=== PATIENT | male | born 2000 | race Caucasian/White ===

== ENCOUNTER 2018-11-09 01:52 | Emergency (ER) | payer OTHER ==
[2018-11-09] MEDS ORDERED: MORPHINE 4 MG/ML SDV IVP ONE (01:55)
[2018-11-09] MEDS ORDERED: MORPHINE 4 MG/ML SDV ONE (02:28)
[2018-11-09 02:30] VITALS: BP 115/60
[2018-11-09] MEDS ORDERED: ACET/HYDROC 5/325MG TH ER ONLY 2 TAB/BOTTLE PO ONE (02:35)
[2018-11-09] MEDS ORDERED: LOR5/325 PO (02:37)
[2018-11-09] MEDS ORDERED: KET10 PO (02:37)
--- NOTE | 2018-11-09 02:38 | ER Report ---
History and Physical Time Seen By MD: 02:15 Hx. of Stated Complaint: PATIENT STATES THAT HE WAS WALKING TO HIS APPARTMEN WHEN HE SLIPPED AND FELL; PATIENT STATES THAT HE LANDED ON HIS LEFT ANKLE HPI/ROS Was out with friends last night. On his way back to his partment, he slipped on the ice, and fell to the ground. Now with pain and swelling in left ankle. Unable to bear weight/ambulate. No other complaints/injuries. Remainder of the 14 system rev: Yes Allergies: Coded Allergies: No Known Drug Allergies (Unverified , 11/09/18) Home Meds Active Scripts Ketorolac Tromethamine (KETOROLAC TROMETHAMINE) 10 Mg Tab, 10 MG PO Q6H PRN for PAIN, #12 TAB 0 Refills Prov:RAYMOND URBANO MD 11/09/18 Hydrocodone Bit/Acetaminophen (HYDROCODON-ACETAMINOPHEN 5-325) 1 Each Tablet, 1 EACH PO Q4H PRN for PAIN, #10 TAB 0 Refills Prov:RAYMOND URBANO MD 11/09/18 Reviewed Nurses Notes: Yes Hx Smoking: No Hx Substance Use Disorder: No Hx Alcohol Use: No Constitutional Physical Exam GE: awake and alert in NAD CV: RRR, no m/r/g, pulses equal/symmetric Lungs: cta b/l Ex: left ankle with TTP of the medical and laterl malleolus. N/V in tact. no lacerations/abrasions Medical Decision Making ED Course/Re-evaluation ED Course Fracture of the ankle after a fall on the ice. N/V in tact. No other injuries. Splint placed by mix technician, and will follow up with ortho this week. Decision to Disposition Date: Nov 09, 2018 Decision to Disposition Time: 02:34 Depart Departure Latest Vital Signs Impression: Primary Impression: Malleolar fracture Additional Impression: Fibula fracture Condition: Improved Disposition: HOME OR SELF-CARE Referrals: JOSAFAT NAVARRO MD New Scripts Ketorolac Tromethamine (KETOROLAC TROMETHAMINE) 10 Mg Tab 10 MG PO Q6H PRN for PAIN, #12 TAB 0 Refills Prov: RAYMOND URBANO MD 11/09/18 Hydrocodone Bit/Acetaminophen (HYDROCODON-ACETAMINOPHEN 5-325) 1 Each Tablet 1 EACH PO Q4H PRN for PAIN, #10 TAB 0 Refills Prov: RAYMOND URBANO MD 11/09/18 Patient Instructions: Ankle Fracture (DC) Problem Qualifiers Primary Impression: Malleolar fracture Encounter type: initial encounter Fracture type: closed Laterality: left Qualified Codes: S82.892A - Other fracture of left lower leg, initial encounter for closed fracture Additional Impression: Fibula fracture Encounter type: initial encounter Fibula location: distal Fracture type: closed Fracture morphology: unspecified fracture morphology Laterality: left Qualified Codes: S82.832A - Other fracture of upper and lower end of left fibula, initial encounter for closed fracture RAYMOND URBANO MD Nov 09, 2018 02:38
--- NOTE | 2018-11-26 09:26 | RADIOLOGY IMAGING REPORT ---
FACILITY: PATIENT NAME: Tobi Stokes : 2000 MR: [id number] V: [id number] EXAM DATE: ORDERING PHYSICIAN: RAYMOND URBANO TECHNOLOGIST: Location: [facility] Patient: Tobi Stokes : 2000 Visit/Account:[id number] Date of Sevice: 11/09/2018 ANKLE 2 VIEW LEFT HISTORY: Left ankle pain and deformity after slipping on ice. COMPARISON: None. TECHNIQUE: AP and lateral views of the left ankle. FINDINGS: There is a horizontal fracture through the base of the medial malleolus. There is 3 mm medi al displacement of the proximal fracture fragment compared to the distal. There is a fracture of the distal fibular metadiaphysis. There is 3 mm medial displacement of the pro ximal fracture fragment compared to the distal. There is soft tissue swelling, greatest medially. IMPRESSION: 1. Mildly displaced medial malleolar fracture. 2. Mildly displaced fracture of the left distal fibular metadiaphysis. 3. Soft tissue swelling. Report Dictated By: Lauren Galvan at 11/09/2018 2:13 AM Report E-Signed By: Lauren Galvan at 11/09/2018 2:16 AM WSN:[id number]
== END 2018-11-09 03:00 | disposition home or self-care (01) ==
LOC: ER 01:56
DX: S82.892A Other fracture of left lower leg, initial encounter for closed fracture (principal); S82.832A Other fracture of upper and lower end of left fibula, initial encounter for closed fracture; W00.0XXA Fall on same level due to ice and snow, initial encounter
CPT/HCPCS: 29515; 73600; 99283; J2270

== ENCOUNTER → 2018-11-09 | Outpatient (CLI) | payer OTHER ==
[~2018-11-09] MED LIST: KET10 PO; LOR5/325 PO
== END ==
LOC: AMB 01:37
PROVIDERS: ATTEND Nurse Practitioner
DX: M25.572 Pain in left ankle and joints of left foot (principal); W10.1XXA Fall (on)(from) sidewalk curb, initial encounter; Z72.89 Other problems related to lifestyle
CPT/HCPCS: A0425; A0429